=== PATIENT | female | born 1955 | race Caucasian/White ===

== ENCOUNTER → 2017-03-29 | Outpatient (REF) | payer OTHER ==
[~2017-03-29] MED LIST: ACE3 PO; ARI10 PO; AUG500 PO; AUG875 PO; CIPR-344 PO; CIT20 PO; HYDR-3503 PO; LEV500 PO; LOR5/325 PO; METHO500 PO; METR-1 PO; NAPR-1043 PO; NO ROUTINE MEDS; OMEP-153 PO; OND4 PO; [UNRECOGNIZED DRUG - CODE] PO
[2017-03-29 13:29] LABS: PLATELET COUNT, AUTOMATED 210 K/uL (150-450)
== END ==
PROVIDERS: ATTEND Nurse Practitioner Family
DX: R10.9 Unspecified abdominal pain (principal)
CPT/HCPCS: 82040; 82150; 82247; 82310; 82374; 82435; 82565; 82947; 83690; 84075; 84132; 84155; 84295; 84450; 84460; 84520; 85025

== ENCOUNTER → 2017-12-13 | Outpatient (CLI) | payer OTHER ==
--- NOTE | 2017-12-13 16:07 | RADIOLOGY IMAGING REPORT ---
FACILITY: [facility] [place] PATIENT NAME: RODRIGO MEDINA : [id number] MR: [id number] V: [id number] EXAM DATE: [id number] ORDERING PHYSICIAN: VIVIAN PARR TECHNOLOGIST: Haylie Onofre PROCEDURE:BILATERAL DIGITAL SCREENING MAMMOGRAM WITH CAD ASSISTED INTERPRETATION & 3D TOMOSYNTHESIS COMPARISON:Prior mammograms 06/06/07. INDICATIONS:SCREENING FINDINGS: Scattered fibroglandular densities are present in both breasts. Several benign appearing calcifications are scattered bilaterally. DIAGNOSTIC CATEGORY 1--NEGATIVE. RECOMMENDATIONS: ROUTINE MAMMOGRAM AND CLINICAL EVALUATION IN 1 YR. IMPRESSION: BIRADS 1: Negative. Dictated by: Roger Clark M.D. on 12/13/2017 at 15:01 Transcribed by: FIX on 12/13/2017 at 15:06 Approved by: Roger Clark M.D. on 12/13/2017 at 16:06 [facility]
== END ==
LOC: MAMO 12-12 14:17
PROVIDERS: ATTEND Nurse Practitioner Family
DX: Z12.31 Encounter for screening mammogram for malignant neoplasm of breast (principal)
CPT/HCPCS: 77063; 77067

== ENCOUNTER → 2017-12-20 | Outpatient (CLI) | payer OTHER ==
[~2017-12-20] MED LIST changes: +LISI-362 PO
--- NOTE | 2017-12-21 10:44 | RADIOLOGY IMAGING REPORT ---
FACILITY: [facility] [place] PATIENT NAME: RODRIGO MEDINA : [id number] MR: [id number] V: [id number] EXAM DATE: ORDERING PHYSICIAN: EFREN JARQUIN TECHNOLOGIST: Carolina Ness RDMS(ABD,OBGYN,BR),RVT PROCEDURE:US LEFT BREAST COMPLETE COMPARISON:None. INDICATIONS:Painful lump inferior left breast FINDINGS: The inferior aspect of the Left breast was imaged from the 3-9 o'clock position revealing no sonographic abnormality cystic or solid therefore clinical follow-up recommended for patient's palpable findings. DIAGNOSTIC CATEGORY 2--BENIGN FINDING. RECOMMENDATIONS: ROUTINE MAMMOGRAM AND CLINICAL EVALUATION. CLINICAL EVALUATION. IMPRESSION: BIRADS 2: Benign finding. No significant abnormality identified along the inferior portion of the Left breast to account for patient's palpable findings therefore clinical follow-up recommended. Of note a negative mammogram or Ultrasound report should not preclude biopsy of a clinically suspicious lesion. Dictated by: Alivia Carvalho M.D. on 12/20/2017 at 16:57 Transcribed by: PABLO on 12/21/2017 at 9:03 Approved by: Alivia Carvalho M.D. on 12/21/2017 at 10:43 [facility]
== END ==
LOC: US 02:36
PROVIDERS: ATTEND Nurse Practitioner Primary Care
DX: N63.20 Unspecified lump in the left breast, unspecified quadrant (principal)